=== PATIENT | male | born 1990 | race Hispanic/Latino ===

== ENCOUNTER 2018-03-18 05:44 | Emergency (ER) | payer SELFPAY ==
[2018-03-18 06:27] LABS: BASOPHILS % (AUTO) 0.6 % (0.0-5.0); EOSINOPHILS % (AUTO) 3.8 % (0.0-8.0); HEMATOCRIT 41.5 % (42-54); LYMPHOCYTES % (AUTO) 31.5 % (21.0-51.0); MEAN CORPUSCULAR HEMOGLOBIN 31.4 pg (27.0-33.0); MEAN CORPUSCULAR HGB CONC 35.5 g/dL (32.0-36.0); MEAN CORPUSCULAR VOLUME 88.4 fL (79-99); MONOCYTES % (AUTO) 7.8 % (3.0-13.0); NEUTROPHILS % (AUTO) 56.3 % (40.0-77.0); PLATELET COUNT (AUTO) 242 K/uL (130-400); RED CELL DISTRIBUTION WIDTH 12.6 % (11.0-15.5); WHITE BLOOD COUNT (AUTO) 9.2 K/uL (4.8-10.8)
[2018-03-18 06:30] LABS: APPEARANCE,URINE Clear (CLEAR); BILIRUBIN,URINE Negative (NEGATIVE); COLOR,URINE Yellow (YELLOW); GLUCOSE, URINE (UA) Negative (NEGATIVE); KETONES,URINE Negative (NEGATIVE); LEUKOCYTE ESTERASE ,URINE Negative (NEGATIVE); NITRATE,URINE Negative (NEGATIVE); OCCULT BLOOD,URINE Negative (NEGATIVE); PROTEIN,URINE Negative (NEGATIVE)
[2018-03-18 06:35] LABS: CREATININE 0.9 mg/dL (0.5-1.5); POTASSIUM 3.9 mmol/L (3.5-5.1)
[2018-03-18] MEDS ORDERED: ONDANSETRON HCL 4 MG/2 ML VIAL ONE ×2 (06:36→09:27)
[2018-03-18] MEDS ORDERED: MORPHINE SULFATE 4 MG/1ML SYG ONE ×2 (06:36→09:27)
[2018-03-18 06:56] LABS: BILIRUBIN,DIRECT 0.1 mg/dL (0.0-0.3); BILIRUBIN,TOTAL 0.3 mg/dL (0.2-1.0)
[2018-03-18 06:57] LABS: ALBUMIN 3.9 g/dL (3.5-5.0)
== END 2018-03-18 10:01 | disposition home or self-care (01) ==
LOC: EDH 05:44
DX: K80.20 Calculus of gallbladder without cholecystitis without obstruction (principal)
CPT/HCPCS: 36415; 76705; 80048; 80076; 81003; 83690; 85025; 96374; 96375; 96376; 99285; J2270 ×2; J2405 ×2

== ENCOUNTER 2022-11-08 20:47 | Emergency (ER) | payer OTHER ==
[~2022-11-08] VITALS: Ht 185.4 cm; Wt 118.8 kg
[2022-11-08 21:20] VITALS: BP 150/100
== END 2022-11-08 21:27 | disposition home or self-care (01) ==
LOC: EDH 20:47
DX: R68.89 Other general symptoms and signs (principal); Z53.21 Procedure and treatment not carried out due to patient leaving prior to being seen by health care provider
CPT/HCPCS: 99281

== ENCOUNTER 2023-06-08 16:51 | Emergency (ER) | payer OTHER ==
[~2023-06-08] VITALS: Ht 185.4 cm; Wt 104.3 kg
[2023-06-08 17:18] VITALS: BP 118/76; PULSE 80; RESP 18
== END 2023-06-08 17:47 | disposition left against medical advice (07) ==
LOC: EDH 16:51
DX: R05.9 Cough, unspecified (principal); Z53.21 Procedure and treatment not carried out due to patient leaving prior to being seen by health care provider
CPT/HCPCS: 99281

== ENCOUNTER 2023-06-09 13:37 | Emergency (ER) | payer OTHER ==
[~2023-06-09] VITALS: Ht 185.4 cm; Wt 104.3 kg
[2023-06-09 14:21] LABS: RAPID GROUP A STREP negative (NEGATIVE)
[2023-06-09 14:22] LABS: SARS-CoV-2, RNA, NAAT NEGATIVE SARS CoV-2 (NEGATIVE)
[2023-06-09 14:31] LABS: INFLUENZA TYPE A Negative For Type A (NEGATIVE); INFLUENZA TYPE B Negative For Type B (NEGATIVE)
[2023-06-09 15:50] VITALS: BP 135/78; PULSE 87; RESP 18; O2SAT 99
== END 2023-06-09 15:52 | disposition home or self-care (01) ==
LOC: EDH 13:37
DX: B34.9 Viral infection, unspecified (principal); Z20.822 Contact with and (suspected) exposure to COVID-19
CPT/HCPCS: 87635; 87804; 87880

== ENCOUNTER 2024-04-22 07:42 | Emergency (ER) | payer SELFPAY ==
[~2024-04-22] VITALS: Ht 188 cm; Wt 104.3 kg
[~2024-04-22 07:42] MED LIST: CLIN-141 PO; IBUP-2077 PO
[2024-04-22 08:06] LABS: RAPID GROUP A STREP negative (NEGATIVE)
[2024-04-22 08:15] LABS: COVID19 (SARS ANTIGEN RAPID) PRESUMPTIVE NEGATIVE (NEGATIVE); INFLUENZA TYPE A Negative For Type A (NEGATIVE)
--- NOTE | 2024-04-22 08:17 | ERN ---
ED Note History of Present Illness Stated Complaint: SORE THROAT, COUGH, CONGESTION Chief Complaint: Sore Throat Time Seen by MD: 07:44 Dictation: 33-year-old male presents to the ED for evaluation of sore throat onset 3 days ago. Patient reports cough, nasal congestion, lightheadedness, but denies any other associated symptoms at this time. Patient reports symptoms have been worsening, but denies taking any medication at home. Allergies: Coded Allergies: No Known Allergies (Unverified Allergy, Unknown, 11/08/22) Home Meds Active Scripts Oseltamivir Phosphate (Tamiflu) 75 Mg Cap, 75 MG PO BID for 5 Days, #10 CAP Prov:MARGARITA CHRISTIAN MD 04/22/24 Azithromycin (Azithromycin) 250 Mg Tablet, 1 TAB PO AD for 5 Days, #6 TAB 0 Refills 2 the first day followed by 1 for days 2-5 Prov:MARGARITA CHRISTIAN MD 04/22/24 Clindamycin HCl (Clindamycin HCl) 300 Mg Capsule, 1 CAP PO QID for 10 Days, #40 CAP 0 Refills Prov:NAGA PULIDO CHRISTIAN COUNSELOR 12/28/23 Ibuprofen (Ibuprofen 800 mg Tab) 800 Mg Tab, 800 MG PO Q8H PRN for fever or pain, #30 TAB 0 Refills Prov:NAGA PULIDO NP 12/28/23 Past Medical History Past Medical History: No Pertinent History Surgical History: None Review of System Dictation Constitutional: Negative for fever,chills, and weight loss Eyes: Negative for injury, pain,redness, and discharge ENT: Positive for sore throat, nasal congestion Negative for injury or swelling Cardiovascular: Negative for chest pain, palpitations, and edema Respiratory: Positive for cough Negative for shortness of breath and wheezing, Abdomen/GI: Negative for abdominal pain, nausea, vomiting, diarrhea, and constipation Back: Negative for injury and pain : Negative for injury, bleeding and discharge MS/Extremity: Negative for injury and deformity Skin: Negative for rash, and discoloration Neuro: Negative for headache, weakness, numbness, tingling, and seizure Psych: Negative for suicide ideation, homicidal ideation, and hallucinations Initial Vital Sign VS Vital Signs Date Time Temp Pulse Resp B/P (MAP) Pulse Ox O2 Delivery O2 Flow Rate FiO2 04/22/24 07:43 97.9 90 16 111/77 96 Room Air 0 11/18/24 07:53 21 Physical Exam Dictation General: awake, alert, NAD Head/Face: Normocephalic, atraumatic Eyes: PERRL, EOMI, vision at baseline ENT: oral cavity clear, TMs clear, no signs of infection Neck: Trachea midline, supple, no nuchal rigidity Cardiovascular: RRR, normal S1/S2, No MRGs, no JVD Respiratory: CTAB, no respiratory distress, No rales or wheezes Abdomen: Soft, non-tender, non-distended, normal bowel sounds, no guarding or rebound. Skin: Warm, dry, normal turgor, no rash MS/Extremity: Pulses equal, no cyanosis, neurovascular intact, FROM Neuro: COAx4, GCS 15, strength 5/5, CN 2-12 intact, normal cerebellar exam, normal gait, Psych: Normal behavior, mood, and affect normal Results (Laboratory/Radiology) Laboratory/Radiology Laboratory Tests Test 04/22/24 07:51 Influenza Type A Antigen Negative For Type A Influenza Type B Antigen Positive For Type B SARS-CoV-2 Antigen (Rapid) PRESUMPTIVE NEGATIVE Group A Streptococcus Rapid negative (NEGATIVE) Labs Reviewed?: Yes ED Course ED Course Orders Procedure Category Date Status Time Covid19 (Sars Antigen LAB 04/22/24 Complete Rapid) 07:44 Influenza Type A & B, LAB 04/22/24 Complete Rapid 07:44 Rapid (Group A Strep) LAB 04/22/24 Complete 07:44 Dexamethasone 4mg/Ml PHA 04/22/24 Complete 1ml Vial (Dexametha 09:00 Ketorolac 60mg/2ml PHA 04/22/24 Complete (Toradol 60mg/2ml) 09:00 Current Medications Medications (Trade) Dose Ordered Sig/Kal Route PRN Reason Start Time Stop Time Status Last Admin Dose Admin Dexamethasone Sodium Phosphate (dexaMETHasone 4MG/ML 1ML VIAL) 10 mg ONCE ONCE IM 04/22/24 09:00 04/22/24 09:01 DC 04/22/24 08:47 Ketorolac Tromethamine (toRADol 60MG/ 2ML) 30 mg ONCE ONCE IM 04/22/24 09:00 04/22/24 09:01 DC 04/22/24 08:48 Vital Signs Date Time Temp Pulse Resp B/P (MAP) Pulse Ox O2 Delivery O2 Flow Rate FiO2 04/22/24 09:20 98.4 74 18 112/71 97 Room Air* 0 21 04/22/24 07:53 98.4 80 18 108/73 97 Room Air* 0 21 04/22/24 07:43 97.9 90 16 111/77 96 Room Air 0 Medical Decision Making MDM MDM: Differential diagnosis: Viral syndrome, URI, influenza Previous outside records reviewed: Old ER visits. Need for hospitalization: Patient does not meet criteria for hospitalization. Need for emergency major/minor surgery: No Patient's prior external medical records from other ER visits were reviewed by me as indicated. Prior testing and results from previous visits were reviewed. Prior tests were taken into account with medical decision making and resource utilization, independent historian/historians were used to obtain complete medical history. I independently interpreted the test that were performed, results were reviewed by me and considered findings on radiology if ordered. Medical management and examination interpretation discussions were had by me with other qualified healthcare professionals as indicated for the patient's care. DX & DISP Disposition: Discharge Departure Impression: Primary Impression: Acute URI Additional Impression: Influenza B Condition: Stable Scripts Oseltamivir Phosphate (Tamiflu) 75 Mg Cap 75 MG PO BID for 5 Days, #10 CAP Prov: MARGARITA CHRISTIAN MD 04/22/24 Azithromycin (Azithromycin) 250 Mg Tablet 1 TAB PO AD for 5 Days, #6 TAB 0 Refills 2 the first day followed by 1 for days 2-5 Prov: MARGARITA CHRISTIAN MD 04/22/24 Referrals: NONE (PCP) I have reviewed, & agreed with my scribe's, documentation. (Entered by Ginger Nava, acting as a scribe for Dr. Christian) I personally scribed for MARGARITA CHRISTIAN MD ([email or web address]) on 04/22/24 at 08:17. Electronically submitted by Ginger Nava ([email or web address]). I personally scribed for MARGARITA CHRISTIAN MD ([email or web address]) on 04/22/24 at 09:30. Electronically submitted by Ginger Nava ([email or web address]). MARGARITA CHRISTIAN MD Apr 22, 2024 08:17
[2024-04-22] MEDS: dexaMETHasone SOD PHOSPHATE 4 MG/ML 1ML VIAL IM ONE (08:47)
[2024-04-22] MEDS: ketOROlac 60 MG VIAL (30MG/ML) IM ONE (08:48)
[2024-04-22] MEDS ORDERED: AZIT250T9 PO (08:50)
[2024-04-22 08:57] LABS: INFLUENZA TYPE B Positive For Type B (NEGATIVE)
[2024-04-22 09:20] VITALS: BP 112/71; PULSE 74; RESP 18; TEMP 98.4; O2SAT 97
[2024-04-22] MEDS ORDERED: OSEL75 PO (09:20)
== END 2024-04-22 09:42 | disposition home or self-care (01) ==
LOC: EDH 07:42
DX: J06.9 Acute upper respiratory infection, unspecified (principal); Z79.899 Other long term (current) drug therapy; Z20.822 Contact with and (suspected) exposure to COVID-19
CPT/HCPCS: 99284; 87426; 87880; 87804 ×2; 96372 ×2; J1100; J1885